=== PATIENT | male | born 1990 ===

== ENCOUNTER 2016-12-12 20:24 | Observation (INO) | payer SELFPAY ==
--- NOTE | 2016-12-12 20:50 | ED PDOC ---
HPI: Psych/Substance Abuse Time Seen by Provider: 12/12/16 20:40 Chief Complaint (Nursing): Substance Abuse Chief Complaint (Provider): substance abuse History Per: EMS Additional History Per: EMS Additional Complaint(s): 26 y/o male brought in by EMS with PD for eval of possible substance abuse. Patient was found to have erratic behavior in public. Patient combative upon arrival, HPI limited due to current state. Patient restrained and medicated for safety upon entering exam room. Past Medical History Reviewed: Historical Data, Nursing Documentation, Vital Signs - Family History Family History: States: Unknown Family Hx - Allergies Allergies/Adverse Reactions: Allergies Allergy/AdvReac Type Severity Reaction Status Date / Time No Known Allergies Allergy Verified 12/12/16 20:36 Review of Systems Review Of Systems: ROS cannot be obtained secondary to pt's inabilty to answer questions. Physical Exam - Reviewed Nursing Documentation Reviewed: Yes Vital Signs Reviewed: Yes - Physical Exam Appears: Positive for: Well, Non-toxic, No Acute Distress Head Exam: Positive for: ATRAUMATIC, NORMAL INSPECTION, NORMOCEPHALIC Skin: Positive for: Normal Color Eye Exam: Positive for: Normal appearance ENT: Positive for: Normal ENT Inspection Cardiovascular/Chest: Positive for: Regular Rate, Rhythm Respiratory: Positive for: Normal Breath Sounds Gastrointestinal/Abdominal: Positive for: Normal Exam Extremity: Positive for: Normal ROM - Laboratory Results Result Diagrams: 12/12/16 21:45 12/12/16 21:45 - Progress ED Course And Treament: labs, urine ED OBSERVATION Discharge: Yes Date of observation admission: 12/12/16 Time of observation admission: 22:21 - Observation admission statement Patient is being placed in observation because:: polysubstance abuse - Goals of Observation Goals of observation are:: observe for clinical sobriety - Progress Note Progress Note: 12/12/16 22:44 Patient sleeping; no acute distress 12/13/16 00:15 Patient sleeping; no acute distress. Vitals stable on monitor 12/13/16 2:45 Patient sleeping; no acute distress. VSS 3:30 Patient awake, alert, oriented x3; ambulating steady gait. States he has a bus to catch and would like to be discharged. Tolerated PO. Stable for discharge Disposition - Clinical Impression Clinical Impression: Polysubstance abuse - Patient ED Disposition Is Patient to be Admitted: No Counseled Patient/Family Regarding: Studies Performed, Diagnosis, Need For Followup - Disposition Disposition: Routine/Home Disposition Time: 03:31 Condition: STABLE
[2016-12-12 22:00] LABS: BASO % 0.6 % (0.0-2.0); EOS # 0.1 K/uL (0.0-0.7); EOS % 1.8 % (0.0-4.0); HEMOGLOBIN 13.8 g/dL (12.0-18.0); LYMPH # 2.7 K/uL (1.0-4.3); LYMPH % 33.2 % (20.0-40.0); MEAN CELL VOLUME 87.5 fl (80.0-94.0); MEAN CORPUSCULAR HEMOGLOBIN 29.9 pg (27.0-31.0); MEAN CORPUSCULAR HGB CONC 34.2 g/dL (33.0-37.0); MONO # 0.4 K/uL (0.0-0.8); MONO % 5.5 % (0.0-10.0); NEUT # 4.8 K/uL (1.8-7.0); NEUT % 58.9 % (50.0-75.0); RBC 4.63 Mil/uL (4.40-5.90); RED CELL DISTRIBUTION WIDTH 12.9 % (11.5-14.5); WHITE BLOOD COUNT 8.1 K/uL (4.8-10.8)
[2016-12-12 22:07] LABS: ALB/GLOB RATIO 1.5 (1.0-2.1); ALBUMIN 5.1 g/dL (3.5-5.0); ALT/SGPT 39 U/L (21-72); AST/SGOT 26 U/L (17-59); BLOOD UREA NITROGEN 15 mg/dl (9-20); CALCIUM 9.5 mg/dL (8.4-10.2); GFR AFRICAN-AMERICAN > 60; GFR NON-AFRICAN AMERICAN > 60
[2016-12-12 22:17] LABS: BARBITURATES, UR NEGATIVE (NEGATIVE); BENZODIAZEPINES, UR POSITIVE (NEGATIVE); OPIATES, UR NEGATIVE (NEGATIVE); PHENCYCLIDINE, UR NEGATIVE (NEGATIVE)
[2016-12-13 03:33] VITALS: O2SAT 98
[2016-12-13 03:34] VITALS: BP 118/74; PULSE 89; RESP 18; TEMP 98.7
== END 2016-12-13 03:35 | disposition home or self-care (01) ==
LOC: H.ER 20:24 → H.EROBSV 22:21
PROVIDERS: ADMIT Emergency Medicine; ATTEND Emergency Medicine
DX: F19.10 Other psychoactive substance abuse, uncomplicated (principal)
CPT/HCPCS: 80053; 82948; 85025; 96372; 99285; G0378; G0480; J1630; J2060